=== PATIENT | male | born 2000 | race Caucasian/White ===

== ENCOUNTER 2024-06-27 00:10 | Emergency (ER) | payer MEDICAID, OTHER ==
[~2024-06-27] VITALS: Ht 167.6 cm; Wt 59.0 kg
[2024-06-27 00:45] VITALS: BP 124/59; TEMP 98.2; O2SAT 99
[2024-06-27] MEDS ORDERED: IBUPROFEN 600 MG TABLET ONE (01:06)
[2024-06-27] MEDS: IBUPROFEN 600 MG TABLET PO ONE (01:09)
[2024-06-27] MEDS ORDERED: IBUP-1490 PO (01:53)
[2024-06-27] MEDS ORDERED: CLIN300C12 PO (01:53)
== END 2024-06-27 01:59 | disposition home or self-care (01) ==
LOC: ER 00:12
DX: S60.222A Contusion of left hand, initial encounter (principal); L03.114 Cellulitis of left upper limb; Z88.0 Allergy status to penicillin; W22.01XA Walked into wall, initial encounter; Y93.89 Activity, other specified; Y92.89 Other specified places as the place of occurrence of the external cause; Y99.8 Other external cause status
CPT/HCPCS: 73130-TC